=== PATIENT | male | born 1965 | race Caucasian/White ===

== ENCOUNTER 2025-03-20 12:20 | Day surgery (SDC) | payer OTHER ==
[2025-03-20] MEDS ORDERED: Lidocaine 1% PF 5 ML VIAL ONE (12:37)
[2025-03-20] MEDS ORDERED: Sodium Bicarbonate 2.5 MEQ/5 ML SDV ONE (12:37)
[2025-03-20] MEDS ORDERED: Lidocaine 1% w/Epinephrine 1:100K 20 ML VIAL ONE (12:37)
== END 2025-03-20 13:40 | disposition home or self-care (01) ==
LOC: ULT 12:20
PROVIDERS: ATTEND Otolaryngology Plastic Surgery within the Head & Neck
PROC: 0G9G3ZX Drainage of Left Thyroid Gland Lobe, Percutaneous Approach, Diagnostic (ICD-10-PCS; principal; 2025-03-20)
DX: E04.1 Nontoxic single thyroid nodule (principal); E11.9 Type 2 diabetes mellitus without complications; E78.5 Hyperlipidemia, unspecified; F41.9 Anxiety disorder, unspecified; J32.9 Chronic sinusitis, unspecified; J30.9 Allergic rhinitis, unspecified; Z79.85 Long-term (current) use of injectable non-insulin antidiabetic drugs; Z79.899 Other long term (current) drug therapy
CPT/HCPCS: 10005; 88173